=== PATIENT | male | born 1975 | race Caucasian/White ===

== ENCOUNTER 2023-03-29 16:28 | Inpatient (IN) | payer MEDICAID, OTHER ==
[~2023-03-29] VITALS: Ht 190.5 cm; Wt 98.3 kg
[2023-03-29 17:27] LABS: Basophils # (auto) 0.1 10 ^3/uL (0-0.2); Basophils % (auto) 0.6 % (0.0-2.0); Eosinophils # (auto) 0.1 10 ^3/uL (0-0.8); Eosinophils % (auto) 0.6 % (0.0-7.0); Hematocrit 44.7 % (41.0-53.0); Hemoglobin 15.4 g/dL (13.5-17.5); Lymphocytes # (auto) 3.1 10 ^3/uL (0.4-5.4); Lymphocytes % (auto) 24.5 % (10.0-50.0); Mean Corpuscular Hgb Conc. 34.4 g/dL (32.0-36.0); Mean Corpuscular Volume 90.2 fL (80.0-100.0); Monocytes # (auto) 0.6 10 ^3/uL (0-1.3); Monocytes % (auto) 4.4 % (0.0-12.0); Neutrophils # (auto) 8.8 10 ^3/uL (1.6-8.6); Neutrophils % (auto) 69.9 % (37.0-80.0); Nucleated Red Blood Cells % 0.1 %; Red Blood Cells 4.96 10^6/uL (4.5-5.90); Red Cell Distribution Width 13.5 % (11.8-14.3); White Blood Cell 12.7 10^3/uL (4.4-10.8)
[2023-03-29 17:44] LABS: Alanine Aminotransferase 33 U/L (7-40); Albumin 4.9 g/dL (3.2-4.8); Alkaline Phosphatase 123 U/L (46-116); Anion Gap 8.3 (5-15); Aspartate Aminotransferase 12 U/L (13-40); BUN/Creatinine Ratio 11.8 (10.0-20.0); Bilirubin, Total 0.3 mg/dL (0.2-1.0); Blood Urea Nitrogen 15 mg/dL (9-23); Calcium 10.1 mg/dL (8.7-10.4); Carbon Dioxide 22.7 mmol/L (20-30); Chloride 106 mmol/L (98-107); Glucose 175 mg/dL (74-106); Potassium 4.2 mmol/L (3.5-5.1); Sodium 137 mmol/L (136-145); Total Protein 7.5 g/dL (5.7-8.2)
[2023-03-29 17:45] LABS: INR 0.98 (0.9-1.15); Partial Thromboplastin Time 27.7 SEC (24.5-34.5); Prothrombin Time 10.3 sec (9.3-11.8)
[2023-03-29 18:12] LABS: Urine Bacteria FEW /hpf (None Seen); Urine Blood TRACE /uL (Negative); Urine Clarity HAZY (Clear); Urine Color Yellow (Yellow); Urine Mucus FEW (None Seen); Urine Protein, UAD TRACE (Negative); Urine Specific Gravity 1.031 (1.001-1.035); Urine Urobilinogen Normal (Negative); Urine WBC 2 /hpf (0 - 3); Urine pH 5.5 (5.0-8.0)
[2023-03-29] MEDS ORDERED: ASPirin 325 MG TAB PO ONE (18:15)
[2023-03-29] MEDS ORDERED: cefTRIAXone 1GM/50ML D5W 50 ML IV ONE (18:30)
[2023-03-29] MEDS ORDERED: NITROGLYCERIN 0.4 MG SL TAB SL ONE (19:00)
[2023-03-29 19:50] VITALS: PULSE 77; RESP 14; O2SAT 99
[2023-03-29] MEDS ORDERED: LABETALOL HCL 5 MG/ML 4ML SYRINGE IV PRN (20:00)
[2023-03-29] MEDS ORDERED: ACETAMINOPHEN 325 MG TAB PO PRN (20:00)
[2023-03-29] MEDS ORDERED: MORPHINE SULFATE INJ 2 MG/ml SYRG IV PRN (20:00)
[2023-03-29] MEDS ORDERED: NITROGLYCERIN 0.4 MG SL TAB SL PRN (20:00)
[2023-03-29] MEDS ORDERED: ASPirin-EC 81 mg tab PO ONE (20:00)
[2023-03-29] MEDS ORDERED: LABETALOL HCL 5 MG/ML 4ML SYRINGE IV ONE (20:45)
[2023-03-29] MEDS ORDERED: HEPARIN DRIP/D5W 100UNITS/ML 250 ML IV SCH ×2 (20:45→21:00)
[2023-03-29] MEDS ORDERED: HEPARIN SODIUM (PORCINE) 5000 UNITS/ML 1ML VIAL IV ONE ×2 (20:45→21:00)
[2023-03-29] MEDS: SODIUM CHLOR 0.9% PF (SALINE LOCK) 10ML VIAL/SYR IV SCH (21:30)
[2023-03-29 21:44] LABS: Magnesium 1.9 mg/dL (1.6-2.6)
[2023-03-29 22:33] LABS: INR 1.06 (0.9-1.15); Prothrombin Time 11.1 sec (9.3-11.8)
[2023-03-29 22:43] LABS: Partial Thromboplastin Time 96.5 SEC (24.5-34.5)
[2023-03-30] VITALS (21 sets, daily range): BP systolic 95–159; BP diastolic 55–98; PULSE 56–83; RESP 11–20; TEMP 97.8–98.7; O2SAT 96–99
[2023-03-30 03:27] LABS: INR 0.98 (0.9-1.15); Partial Thromboplastin Time 37.8 SEC (24.5-34.5); Prothrombin Time 10.3 sec (9.3-11.8)
[2023-03-30] MEDS: SODIUM CHLOR 0.9% PF (SALINE LOCK) 10ML VIAL/SYR IV SCH ×3 (06:02→21:30)
[2023-03-30 06:35] LABS: Basophils # (auto) 0.1 10 ^3/uL (0-0.2); Basophils % (auto) 0.5 % (0.0-2.0); Eosinophils # (auto) 0.2 10 ^3/uL (0-0.8); Eosinophils % (auto) 1.7 % (0.0-7.0); Hematocrit 42.3 % (41.0-53.0); Hemoglobin 14.8 g/dL (13.5-17.5); Lymphocytes # (auto) 3.2 10 ^3/uL (0.4-5.4); Lymphocytes % (auto) 29.1 % (10.0-50.0); Mean Corpuscular Hemoglobin 31.4 pg (28.0-32.0); Mean Corpuscular Hgb Conc. 35.1 g/dL (32.0-36.0); Mean Corpuscular Volume 89.5 fL (80.0-100.0); Monocytes # (auto) 0.7 10 ^3/uL (0-1.3); Neutrophils # (auto) 6.9 10 ^3/uL (1.6-8.6); Neutrophils % (auto) 62.7 % (37.0-80.0); Red Blood Cells 4.72 10^6/uL (4.5-5.90); Red Cell Distribution Width 13.3 % (11.8-14.3)
[2023-03-30 06:46] LABS: Chloride 109 mmol/L (98-107); Potassium 4.1 mmol/L (3.5-5.1); Sodium 140 mmol/L (136-145)
[2023-03-30 06:47] LABS: Anion Gap 6.5 (5-15); Calcium 9.1 mg/dL (8.7-10.4); Carbon Dioxide 24.5 mmol/L (20-30)
[2023-03-30 06:52] LABS: Blood Urea Nitrogen 12 mg/dL (9-23); Glucose 116 mg/dL (74-106)
[2023-03-30] MEDS: PANTOPRAZOLE 40 MG/10 ML VIAL INJ IV SCH (08:11)
[2023-03-30] MEDS: cefTRIAXone 1GM/50ML D5W 50 ML IV SCH (08:14)
[2023-03-30] MEDS: ASPirin-EC 81 mg tab PO SCH (08:14)
[2023-03-30] MEDS ORDERED: ATORVASTATIN 20 MG TAB PO ONE (09:15)
[2023-03-30] MEDS: SOD CHL 0.45% 1,000 ML IV SCH ×2 (09:19→18:30)
[2023-03-30] MEDS ORDERED: METOPROLOL TARTRATE 25 MG TAB PO SCH (10:00)
[2023-03-30] MEDS ORDERED: ENOXAPARIN SOD 40 MG/0.4 ML SYRINGE SC SCH (10:00)
[2023-03-30 10:48] LABS: INR 0.96 (0.9-1.15); Partial Thromboplastin Time 42.6 SEC (24.5-34.5); Prothrombin Time 10.1 sec (9.3-11.8)
[2023-03-30] MEDS ORDERED: HEPARIN DRIP/D5W 100UNITS/ML 250 ML IV SCH (11:30)
[2023-03-30] MEDS ORDERED: LIDOCAINE 2%HCL (LOCAL ANESTH.) INJ 20ML MDV ONE (16:44)
[2023-03-30] MEDS ORDERED: IODIXANOL 320MG/ML 100ML BTL IV ONE (16:44)
[2023-03-30] MEDS ORDERED: HEPARIN SODIUM (PORCINE) 5000 UNITS/ML 1ML VIAL ONE ×2 (16:51→17:21)
[2023-03-30] MEDS ORDERED: SODIUM CHL 0.9% 0 ML ONE (16:51)
[2023-03-30] MEDS ORDERED: VERAPAMIL 2.5MG/ML INJ 2ML VIAL IV ONE (16:51)
[2023-03-30] MEDS ORDERED: fentaNYL CITRATE 100 MCG/2 ML VL ONE (16:51)
[2023-03-30] MEDS ORDERED: MIDAZOLAM HCL 2MG/2ML 2ml VIAL (1mg/ml) ONE (16:51)
[2023-03-30] MEDS ORDERED: ANGIOMAX 250 MG VIAL IV ONE (16:51)
[2023-03-30] MEDS ORDERED: TICAGRELOR 90 MG TAB ONE (17:32)
[2023-03-30] MEDS: TICAGRELOR 90 MG TAB PO SCH (21:30)
[2023-03-30] MEDS: CARVEDILOL 3.125 MG TAB PO SCH (21:32)
[2023-03-30] MEDS ORDERED: ATORVASTATIN 20 MG TAB PO SCH ×2 (22:00)
[2023-03-31] VITALS (19 sets, daily range): BP systolic 102–148; BP diastolic 57–96; PULSE 63–96; RESP 12–23; TEMP 97.8–98.3; O2SAT 91–99
[2023-03-31] MEDS: SOD CHL 0.45% 1,000 ML IV SCH ×2 (04:58→15:15)
[2023-03-31] MEDS: SODIUM CHLOR 0.9% PF (SALINE LOCK) 10ML VIAL/SYR IV SCH ×2 (05:30→14:00)
[2023-03-31 05:55] LABS: Basophils # (auto) 0 10 ^3/uL (0-0.2); Basophils % (auto) 0.4 % (0.0-2.0); Eosinophils # (auto) 0.1 10 ^3/uL (0-0.8); Eosinophils % (auto) 1.4 % (0.0-7.0); Hematocrit 42.1 % (41.0-53.0); Hemoglobin 14.4 g/dL (13.5-17.5); Lymphocytes # (auto) 2.4 10 ^3/uL (0.4-5.4); Lymphocytes % (auto) 24.1 % (10.0-50.0); Mean Corpuscular Hgb Conc. 34.1 g/dL (32.0-36.0); Mean Corpuscular Volume 90.7 fL (80.0-100.0); Monocytes # (auto) 0.6 10 ^3/uL (0-1.3); Neutrophils # (auto) 6.7 10 ^3/uL (1.6-8.6); Neutrophils % (auto) 68.1 % (37.0-80.0); Red Blood Cells 4.65 10^6/uL (4.5-5.90); Red Cell Distribution Width 13.3 % (11.8-14.3); White Blood Cell 9.9 10^3/uL (4.4-10.8)
[2023-03-31 06:09] LABS: Chloride 106 mmol/L (98-107); Potassium 3.6 mmol/L (3.5-5.1); Sodium 137 mmol/L (136-145)
[2023-03-31 06:10] LABS: Anion Gap 10 (5-15); Calcium 9.1 mg/dL (8.7-10.4); Carbon Dioxide 21 mmol/L (20-30)
[2023-03-31 06:15] LABS: BUN/Creatinine Ratio 11.3 (10.0-20.0); Blood Urea Nitrogen 12 mg/dL (9-23); Glucose 200 mg/dL (74-106)
[2023-03-31] MEDS: cefTRIAXone 1GM/50ML D5W 50 ML IV SCH (09:17)
[2023-03-31] MEDS: PANTOPRAZOLE 40 MG/10 ML VIAL INJ IV SCH (09:17)
[2023-03-31] MEDS: TICAGRELOR 90 MG TAB PO SCH (09:18)
[2023-03-31] MEDS: ASPirin-EC 81 mg tab PO SCH (09:18)
[2023-03-31] MEDS: CARVEDILOL 3.125 MG TAB PO SCH (09:19)
[2023-03-31] MEDS ORDERED: LISINOPRIL 5 MG TAB PO SCH (10:00)
[2023-03-31] MEDS ORDERED: ATOR20TA50 PO (12:01)
[2023-03-31] MEDS ORDERED: LISI-275 PO (12:01)
[2023-03-31] MEDS ORDERED: ASPI-543 PO (12:01)
[2023-03-31] MEDS ORDERED: CAR3125T PO (12:01)
[2023-03-31] MEDS ORDERED: TICA90TA PO (12:02)
== END 2023-03-31 18:19 | disposition home or self-care (01) | DRG 174 ==
LOC: ER 16:28 → TELE 20:19 → DOU IN ICU 03-30 04:02
PROVIDERS: ADMIT Nurse Practitioner Family; ATTEND Internal Medicine
PROC: 4A023N7 Measurement of Cardiac Sampling and Pressure, Left Heart, Percutaneous Approach (ICD-10-PCS; principal; 2023-03-30)
PROC: B211YZZ Fluoroscopy of Multiple Coronary Arteries using Other Contrast (ICD-10-PCS; 2023-03-30)
PROC: B215YZZ Fluoroscopy of Left Heart using Other Contrast (ICD-10-PCS; 2023-03-30)
PROC: 027034Z Dilation of Coronary Artery, One Artery with Drug-eluting Intraluminal Device, Percutaneous Approach (ICD-10-PCS; 2023-03-30)
DX: I21.4 Non-ST elevation (NSTEMI) myocardial infarction (principal); E78.1 Pure hyperglyceridemia; I25.10 Atherosclerotic heart disease of native coronary artery without angina pectoris; E78.5 Hyperlipidemia, unspecified; R31.29 Other microscopic hematuria; I10 Essential (primary) hypertension; Z98.61 Coronary angioplasty status; Z82.49 Family history of ischemic heart disease and other diseases of the circulatory system; Z88.5 Allergy status to narcotic agent
CPT/HCPCS: 36415; 71045; 80048; 80053; 80061; 81001; 83036; 83735; 84484; 85025; 85379; 85610; 85730; 87040; 87081; 92941; 93005; 93306; 93458; 96365; 99152; 99153; 99291; C1887; C9113; G0378; J0696; J2250; J3490; Q9967

== ENCOUNTER → 2024-01-16 | Outpatient (CLI) | payer MEDICAID ==
[~2024-01-16] MED LIST: ASPI-543 PO; ATOR20TA50 PO; CARV-214 PO; LISI-275 PO; TICA90TA PO
== END | disposition home or self-care (01) ==
LOC: XYW 13:32
PROVIDERS: ATTEND Internal Medicine
DX: I07.1 Rheumatic tricuspid insufficiency (principal); I25.10 Atherosclerotic heart disease of native coronary artery without angina pectoris
CPT/HCPCS: 93306

== ENCOUNTER 2024-11-14 08:08 | Emergency (ER) | payer MEDICAID, OTHER ==
[~2024-11-14] VITALS: Ht 190.5 cm; Wt 85.7 kg
[2024-11-14 08:52] VITALS: BP 134/75; PULSE 67; RESP 18; TEMP 98; O2SAT 98
[2024-11-14] MEDS ORDERED: ACET-1881 PO (08:55)
[2024-11-14] MEDS ORDERED: HYDR-4902 PO (08:55)
[2024-11-14] MEDS ORDERED: METH-1181 PO (08:55)
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
== END 2024-11-14 08:58 | disposition home or self-care (01) ==
LOC: ER 08:08
DX: M79.18 Myalgia, other site (principal); Z79.82 Long term (current) use of aspirin; Z79.899 Other long term (current) drug therapy; Z88.5 Allergy status to narcotic agent; V89.2XXA Person injured in unspecified motor-vehicle accident, traffic, initial encounter; Y93.89 Activity, other specified; Y92.89 Other specified places as the place of occurrence of the external cause; Y99.8 Other external cause status

== ENCOUNTER 2025-02-14 14:04 | Emergency (ER) | payer MEDICAID ==
[~2025-02-14] VITALS: Ht 190.5 cm; Wt 87.0 kg
[~2025-02-14 14:04] MED LIST changes: +ACET-1881 PO; +HYDR-4902 PO; +METH-1181 PO
--- NOTE | 2025-02-14 14:31 | ED.PDOC ---
HPI Comments 49y M who presents to the ED for chief complaint of chest pain. 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 Pt states he went to his car to sit down and states his symptoms temporarily were alleviated. Pt states he was driving and later, he had cough and states he started to have L sided chest pain. Pt states the pain is stabbing, radiating to the L arm, rating the pain 6/ 10, with no associated exacerbating or relieving factors. Pt states he has past cardiac history of mild ME and states daily baby aspirin and states he took it earlier this AM. Pt has noted BP of 182/93 but vitals are otherwise normal. Pt otherwise denies any other symptoms at this time. Chief Complaint: Chest Pain Time Seen by MD: 14:29 Primary Care Provider: FREDDIE Reviewed Notes: Medications, Allergies Allergies: Coded Allergies: Codeine (Verified Allergy, Unknown, 03/29/23) Home Meds Active Scripts Hydrocodone-Acetaminophen (Hydrocodone Bitartrate/AC 5-325 mg) 1 Tab Tab, 1 TAB PO Q8HP PRN for 1 Day, #3 TAB 0 Refills Prov:ROZINA ANDERSON [employer] WORKER 11/14/24 Acetaminophen (Acetaminophen) 325 Mg Tab, 325 MG PO Q6HP PRN for 10 Days, #40 TAB 0 Refills Prov:ROZINA ANDERSON [employer] WORKER 11/14/24 Methocarbamol (Methocarbamol) 500 Mg Tab, 500 MG PO Q6HP PRN for 10 Days, #40 TAB 0 Refills Prov:ROZINA ANDERSON [employer] WORKER 11/14/24 Ticagrelor Base (BRILINTA) 90 Mg Tab, 90 MG PO BID, #60 TAB Prov:YASSINE PEREZ MD 03/31/23 Lisinopril (Lisinopril) 5 Mg Tab, 2.5 MG PO DAILY, #30 TAB Prov:YASSINE PEREZ MD 03/31/23 Carvedilol (COREG) 3.125 Mg Tab, 3.125 MG PO Q12HR, #60 TAB Prov:YASSINE PEREZ MD 03/31/23 Atorvastatin Calcium (ATORVASTATIN CALCIUM) 20 Mg Tab, 40 MG PO HS, #30 TAB Prov:YASSINE PEREZ MD 03/31/23 Aspirin (Aspir-Low) 81 Mg Tab, 81 MG PO DAILY, #30 TAB Prov:YASSINE PEREZ MD 03/31/23 Information Source: Patient Mode of Arrival: Ambulatory Severity: Moderate Timing: Hours Duration: Since onset Prehospital treatment: None Location: Chest (L) Radiation: Arm (L) Quality: Stabbing Onset: At Rest Cardiac Risk Factors: Smoker PE Risk Factors: None History of: Similar pain in past, ME, Aspirin Modifying Factors: Nothing Associated Signs and Symptoms: None Past Medical History PAST MEDICAL HISTORY: High Lipids, HTN, ME Surgical History: PTCA Family History Family History: Reviewed,noncontributory to illness Social History Smoker: Cigarettes Alcohol: Denies ETOH Use Drugs: Denies Drug Use Constitutional: denies: chills, diaphoresis, fatigue, fever, malaise, sweats, weakness, others EENTM: denies: blurred vision, double vision, ear bleeding, ear discharge, ear drainage, ear pain, ear ringing, eye pain, eye redness, hearing loss, mouth pain, mouth swelling, nasal discharge, nose bleeding, nose congestion, nose pain, photophobia, tearing, throat pain, throat swelling, voice changes, others Respiratory: denies: cough, hemoptysis, orthopnea, SOB at rest, shortness of breath, SOB with excertion, stridor, wheezing, others Cardiovascular: reports: chest pain; denies: dizzy spells, diaphoresis, Dyspnea on exertion, edema, irregular heart beat, left arm pain, lightheadedness, palpitations, PND, syncope, others Gastrointestinal: denies: abdomen distended, abdominal pain, blood streaked bowels, constipated, diarrhea, dysphagia, difficulty swallowing, hematemesis, melena, nausea, poor appetite, poor fluid intake, rectal bleeding, rectal pain, vomiting, others Genitourinary: denies: burning, dysuria, flank pain, frequency, hematuria, incontinence, penile discharge, penile sore, pain, testicle pain, testicle swelling, urgency, others Neurological: denies: dizziness, fainting, headache, left sided numbness, left sided weakness, numbness, paresthesia, pre-existing deficit, right sided numbness, right sided weakness, seizure, speech problems, tingling, tremors, weakness, others Musculoskeletal: denies: back pain, gout, joint pain, joint swelling, muscle pain, muscle stiffness, neck pain, others Integumetry: denies: bruises, change in color, change in hair/nails, dryness, laceration, lesions, lumps, rash, wounds, others Allergic/Immunocompromised: denies: Difficulty Healing, Frequent Infections, Hives, Itching, others Hematologic/Lymphatic: denies: anemia, blood clots, easy bleeding, easy bruising, swollen glands, others Endocrine: denies: excessive hunger, excessive sweating, excessive thirst, excessive urination, flushing, intolerance to cold, intolerance to heat, unexplained weight gain, unexplained weight loss, others Psychiatric: denies: anxiety, bipolar disorder, depression, hopeless, panic disorder, schizophrenia, sleepless, suicidal, others All Other Systems: Reviewed and Negative EKG EKG : Pulse Rate (adult): 92 Thompson: Normal Cardiac Rhythm: NSR Block: None Hypertrophy: SAE ST: Normal Was a procedure done? Was a procedure done?: No CP Differential Dx Differential Diagnosis: A-fib, A-Flutter, Angina, Anxiety / Panic Attack, Heart Failure, PVC's Differential Diagnosis: HTN Essential, HTN Accelerated, HTN Encephalopathy, Medical NonCompliance Differential Diagnosis: Angina, Chest Wall Pain, Costochondritis X-Ray, Labs, Meds, VS Vital Signs Date Time Temp Pulse Resp B/P (MAP) Pulse Ox O2 Delivery O2 Flow Rate FiO2 02/14/25 15:11 86 02/14/25 14:31 92 02/14/25 14:10 92 02/14/25 14:05 98.2 108 18 182/93 98 98.2 Lab Test 02/14/25 14:16 Range/Units White Blood Count Pending Red Blood Count Pending Hemoglobin Pending Hematocrit Pending Mean Corpuscular Volume Pending Mean Corpuscular Hemoglobin Pending Mean Corpuscular Hemoglobin Concent Pending Red Cell Distribution Width Pending Platelet Count Pending Mean Platelet Volume Pending Neutrophils (%) (Auto) Pending Lymphocytes (%) (Auto) Pending Monocytes (%) (Auto) Pending Basophils (%) (Auto) Pending Neutrophils # (Auto) Pending Lymphocytes # (Auto) Pending Monocytes # (Auto) Pending Sodium Level Pending Potassium Level Pending Chloride Level Pending Carbon Dioxide Level Pending Anion Gap Pending Blood Urea Nitrogen Pending Creatinine Pending Glomerular Filtration Rate Calc Pending BUN/Creatinine Ratio Pending Serum Glucose Pending Calcium Level Pending Troponin I High Sensitivity 5 </=54 ng/L CHEST RADIOGRAPH IMPRESSION: No evidence of acute disease. Patient Education/Counseling: Diagnosis, Treatment Family Education/Counseling: No Family Present SEPSIS Sepsis Screen Date sepsis recognized/suspect: Feb 14, 2025 Time Sepsis recognized/suspect: 1407 Recent Procedure: No On Antibiotic Therapy: No Respiratory Rate >20: No Heart Rate >90: Yes Temp<36 C (96.8 F) or >38.3 C: No SBP <90 or MAP <65 mmHG: No New Acute Mental Status Change: No Is the patient on CPAP, BIPAP,: No Physician Orders Electrocardigram (02/14/25 14:12) Troponin-I Hs (02/14/25 15:12) Troponin-I Hs (02/14/25 17:12) Electrocardigram (02/14/25 15:12) Electrocardigram (02/14/25 17:12) Complete Blood Count (02/14/25 14:16) Basic Metabolic Panel (02/14/25 14:16) Chest Two Views Routine (02/14/25 14:16) Vital Signs Date Time Temp Pulse Resp B/P (MAP) Pulse Ox O2 Delivery O2 Flow Rate FiO2 02/14/25 15:11 86 02/14/25 14:31 92 02/14/25 14:10 92 02/14/25 14:05 98.2 108 18 182/93 98 98.2 Laboratory Tests Test 02/14/25 14:16 White Blood Count Pending Critical Care Note Critical Care Time?: No Stability Stability form required: No Heart Score Heart Score: Heart Score Response (Comments) Value History Slightly Suspicious 0 EKG Normal 0 Age 45-64 1 Risk Factors >3 or Hx ASHD 2 Total 3 I personally scribed for ANGELIQUE LEONG MD ([email or web address]) on 02/14/25 at 14:31. Electronically submitted by Yolette Spicer ([email or web address]). I personally scribed for ANGELIQUE LEONG MD ([email or web address]) on 02/14/25 at 15:15. Electronically submitted by Yolette Spicer ([email or web address]). ANGELIQUE LEONG MD Feb 14, 2025 14:31
--- NOTE | 2025-02-14 14:40 | DVH ---
CHEST RADIOGRAPH Indication: CP Technique: Frontal and lateral view of the chest was obtained Comparison: XY CHEST PORTABLE on DOS: 03/29/23 FINDINGS: Lines and Tubes: None Lungs: Clear Pleura: No effusion. No pneumothorax. Cardiomediastinal contours: Unremarkable Bones: Unremarkable IMPRESSION: No evidence of acute disease.
[2025-02-14 15:25] LABS: Hematocrit 45.7 % (41.0-53.0); Hemoglobin 15.9 g/dL (13.5-17.5); Mean Corpuscular Hemoglobin 31.4 pg (28.0-32.0); Mean Corpuscular Volume 90.3 fL (80.0-100.0); Nucleated Red Blood Cells % 0.0 %
[2025-02-14 15:26] VITALS: BP 139/95; PULSE 86; RESP 19; TEMP 98.2; O2SAT 97
[2025-02-14 15:34] LABS: Chloride 105 mmol/L (98-107); Potassium 4.3 mmol/L (3.5-5.1); Sodium 140 mmol/L (136-145)
[2025-02-14 15:35] LABS: Anion Gap 9 (5-15); Carbon Dioxide 26 mmol/L (20-31)
[2025-02-14 15:36] LABS: Calcium 10.6 mg/dL (8.7-10.4)
[2025-02-14 15:40] LABS: BUN/Creatinine Ratio 18.1 (10.0-20.0); Blood Urea Nitrogen 21 mg/dL (9-23); Glucose 131 mg/dL (74-106)
[2025-02-14] MEDS ORDERED: ACETAMINOPHEN 325 MG TAB PO PRN (16:00)
[2025-02-14] MEDS ORDERED: ONDANSETRON HCL 4 MG/2 ML VIAL IV PRN (16:00)
[2025-02-14] MEDS ORDERED: NITROGLYCERIN 0.4 MG SL TAB SL PRN (16:00)
[2025-02-14] MEDS ORDERED: MORPHINE SULFATE INJ 2 MG/ml SYRG IV PRN (16:00)
[2025-02-14] MEDS ORDERED: CARVEDILOL 3.125 MG TAB PO SCH (22:00)
[2025-02-14] MEDS ORDERED: ATORVASTATIN 20 MG TAB PO SCH (22:00)
[2025-02-15] MEDS ORDERED: LISINOPRIL 5 MG TAB PO SCH (10:00)
== END 2025-02-14 15:51 | disposition left against medical advice (07) ==
LOC: ER 14:04
DX: R07.89 Other chest pain (principal); R05.9 Cough, unspecified; F17.210 Nicotine dependence, cigarettes, uncomplicated; I10 Essential (primary) hypertension; I25.2 Old myocardial infarction; E78.5 Hyperlipidemia, unspecified; Z88.5 Allergy status to narcotic agent; Z79.82 Long term (current) use of aspirin; Z79.899 Other long term (current) drug therapy
CPT/HCPCS: 36415; 71046; 80048; 84484; 85025

== ENCOUNTER 2025-02-21 07:32 | Day surgery (SDC) | payer MEDICAID ==
[2025-02-20 10:25] LABS: Urine Protein, UAD Negative (Negative)
[2025-02-20 10:26] LABS: Hematocrit 43.9 % (41.0-53.0); Hemoglobin 15.2 g/dL (13.5-17.5); Mean Corpuscular Hemoglobin 31.5 pg (28.0-32.0); Mean Corpuscular Volume 90.8 fL (80.0-100.0); Nucleated Red Blood Cells % 0.0 %
[2025-02-20 10:46] LABS: INR 0.97 (0.9-1.15); Partial Thromboplastin Time 27.2 SEC (24.5-34.5); Prothrombin Time 10.3 sec (9.3-11.8)
[2025-02-20 10:58] LABS: Albumin 4.7 g/dL (3.2-4.8); Anion Gap 5 (5-15); BUN/Creatinine Ratio 23.0 (10.0-20.0); Bilirubin, Total 0.5 mg/dL (0.2-1.0); Blood Urea Nitrogen 23 mg/dL (9-23); Calcium 9.5 mg/dL (8.7-10.4); Carbon Dioxide 27 mmol/L (20-31); Glucose 91 mg/dL (74-106); Potassium 4.6 mmol/L (3.5-5.1); Sodium 141 mmol/L (136-145); Total Protein 6.8 g/dL (5.7-8.2)
[2025-02-20 11:12] LABS: Alanine Aminotransferase 47 U/L (7-40); Alkaline Phosphatase 123 U/L (46-116); Chloride 109 mmol/L (98-107)
[~2025-02-21] VITALS: Ht 190.5 cm; Wt 86.2 kg
[~2025-02-21 07:32] MED LIST changes: -HYDR-4902 PO; -METH-1181 PO; -TICA90TA PO
[2025-02-21] MEDS ORDERED: LIDOCAINE 1% INJ PF 5ML AMP ONE (08:07)
[2025-02-21] MEDS ORDERED: PROPOFOL 10 MG/ML 20 ML IV ONE ×2 (08:07→08:15)
[2025-02-21 08:47] VITALS: PULSE 61; RESP 12; TEMP 98; O2SAT 100
--- NOTE | 2025-02-21 08:48 | DVHHP2 ---
GI H&P Pre-Op Assessment Date: 02/21/25 Chief complaint: Blood in stool HPI: per clinic note Past medical history: per clinic note Past surgical history: per clinic note Family history: per clinic note Physical exam: General: NAD, AAOX3 HEENT: PERRL, no scleral icterus, normal hearing, gums without lesions or ble eding, oropharynx clear without erythema or exudate. Neck: Supple without enlargement of the thyroid, or lymphadenopathy. Chest: Normal size and shape, no tenderness, lung jensen clear to auscultation and percussion, nonlabored breathing. Heart: RRR, no murmur Abdomen: non-distended, no tenderness to palpation, +BS, no hepatosplenomegaly Extremities: no edema Neurological: CN II-XII intact, sensation intact in all extremities, 5+ strength in all extremities Skin: No rashes, No jaundice Assessment: -Blood in stool Plan: - Colonoscopy - Risks (bleeding, infection, perforation, reaction to sedation medications and cardiopulmonary arrest) and benefit of the procedure were explained to patient. Patient agrees to undergo the procedure. GEORGI BELLAMY MD Feb 21, 2025 08:48
--- NOTE | 2025-02-21 08:51 | DVHOP2 ---
Operative Report DATE OF OPERATION: 02/21/25 PROCEDURE: Colonoscopy. PREOPERATIVE INDICATION: The patient is a 49 -year-old male undergoing colonoscopy for blood in stool. POSTOPERATIVE DIAGNOSES: 1. 2 mm transverse colon was removed with cold biopsy forceps. 2. Two descending colon polyps (2 mm, 3 mm) were removed with cold biopsy forceps. 3. 2 mm rectosigmoid polyp was removed by cold biopsy forceps. 4. A 1 cm sigmoid colon polyp was removed with hot snare and retrieved. The polypectomy site was clipped. 5. Mild diverticulosis in the left colon. 6. Small Internal hemorrhoids. PROCEDURE PERFORMED BY: Carlos Teague M.D. SCOPE: Olympus videocolonoscope. ASA CLASS: 3 PREOPERATIVE MEDICATIONS: MAC with Joahnn LUO PROCEDURE IN DETAIL: After obtaining an informed consent, the patient was placed on left lateral decubitus position. He was then sedated with the above medications. A rectal examination was performed that was normal. The colonoscope was then passed through the anus into the rectosigmoid and through the descending, transverse, and ascending colon up to the cecum with visualization of the appendiceal orifice, base of the cecum and the ileocecal valve. A 2 mm transverse colon was removed with cold biopsy forceps. Two descending colon polyps (2 mm, 3 mm) were removed with cold biopsy forceps. A 2 mm rectosigmoid polyp was removed by cold biopsy forceps. A 1 cm sigmoid colon polyp was removed with hot snare and retrieved. The polypectomy site was clipped. There was mild diverticulosis in the left colon. There were small Internal hemorrhoids. The colonoscope was then withdrawn. The patient tolerated the procedure well without difficulty. WITHDRAWAL TIME: 25 minutes QUALITY OF THE PREP: [place] Bowel Prep score: 5 COMPLICATIONS : None SPECIMENS: Colon polyps DISPOSITION: D/C to home PLAN: 1. Repeat colonoscopy base on biopsy result CARLOS TEAGUE MD Feb 21, 2025 08:51
--- NOTE | 2025-02-21 08:52 | DVHDS2 ---
Physician Discharge Progress N Final Diagnosis: Colon polyp, diverticulosis, internal hemorrhoids Operations or Procedures: Operations or Procedures Colonoscopy with cold forceps polypectomy and hot snare polypectomy. Condition on Discharge: Good Disposition: Home Discharge Instructions: Diet: Regular Activity: No Restrictions, As Tolerated Medications: Resume previous home medications Follow Up Care: Discharge Statement: "Patient was advised to return to the ER or call 911 if any headaches, dizziness, shortness of breath, chest pain, abdominal pain, bleeding, fevers, or worsening of medical condition. Patient was counseled about treatment plan, medications, possible side effects, patientverbalized understanding. All questions were answered to the best of my ability. This discharge took greater then 30 minutes in planning, reviewing documentation, counseling the patient, and discussing with other team members." GEORGI BELLAMY MD Feb 21, 2025 08:51
[2025-02-21 09:10] VITALS: BP 131/84; PULSE 57; RESP 12; O2SAT 99
== END 2025-02-21 09:25 | disposition home or self-care (01) ==
LOC: GI 07:32
PROVIDERS: ATTEND Internal Medicine Gastroenterology
DX: K92.1 Melena (principal); K57.30 Diverticulosis of large intestine without perforation or abscess without bleeding; K63.5 Polyp of colon; K64.8 Other hemorrhoids; D12.4 Benign neoplasm of descending colon; D12.5 Benign neoplasm of sigmoid colon; K62.1 Rectal polyp; I10 Essential (primary) hypertension; I25.10 Atherosclerotic heart disease of native coronary artery without angina pectoris; I25.2 Old myocardial infarction; Z95.5 Presence of coronary angioplasty implant and graft; K21.9 Gastro-esophageal reflux disease without esophagitis; Z79.899 Other long term (current) drug therapy; Z98.890 Other specified postprocedural states
CPT/HCPCS: 36415; 45380; 45385; 80053; 81001; 85025; 85610; 85730; 88305; J2704; J7030

== ENCOUNTER 2025-04-04 10:24 | Day surgery (SDC) | payer MEDICAID ==
[2025-04-02 11:58] LABS: Urine Protein, UAD Negative (Negative)
[2025-04-02 12:03] LABS: Hematocrit 46.2 % (41.0-53.0); Hemoglobin 16.0 g/dL (13.5-17.5); Mean Corpuscular Hemoglobin 31.0 pg (28.0-32.0); Mean Corpuscular Volume 89.7 fL (80.0-100.0); Nucleated Red Blood Cells % 0.1 %
[2025-04-02 12:10] LABS: INR 1.0 (0.9-1.15); Partial Thromboplastin Time 28.3 SEC (24.5-34.5); Prothrombin Time 10.6 sec (9.3-11.8)
[2025-04-02 12:19] LABS: Albumin 4.6 g/dL (3.2-4.8); Anion Gap 6 (5-15); BUN/Creatinine Ratio 10.4 (10.0-20.0); Bilirubin, Total 0.5 mg/dL (0.2-1.0); Blood Urea Nitrogen 10 mg/dL (9-23); Calcium 9.8 mg/dL (8.7-10.4); Carbon Dioxide 29 mmol/L (20-31); Chloride 105 mmol/L (98-107); Glucose 74 mg/dL (74-106); Potassium 4.6 mmol/L (3.5-5.1); Sodium 140 mmol/L (136-145); Total Protein 7.3 g/dL (5.7-8.2)
[2025-04-02 12:23] LABS: Alanine Aminotransferase 41 U/L (7-40); Alkaline Phosphatase 143 U/L (46-116)
[~2025-04-04] VITALS: Ht 190.5 cm; Wt 85.7 kg
--- NOTE | 2025-04-04 11:33 | DVHHP2 ---
GI H&P Pre-Op Assessment Date: 04/04/25 Chief complaint: colon polyp with high-grade dysplasia HPI: per clinic note Past medical history: per clinic note Past surgical history: per clinic note Family history: per clinic note Physical exam: General: NAD, AAOX3 HEENT: PERRL, no scleral icterus, normal hearing, gums without lesions or bleeding, oropharynx clear without erythema or exudate. Neck: Supple without enlargement of the thyroid, or lymphadenopathy. Chest: Normal size and shape, no tenderness, lung jensen clear to auscultation and percussion, nonlabored breathing. Heart: RRR, no murmur Abdomen: non-distended, no tenderness to palpation, +BS, no hepatosplenomegaly Extremities: no edema Neurological: CN II-XII intact, sensation intact in all extremities, 5+ strength in all extremities Skin: No rashes, No jaundice Assessment: - colon polyp with high-grade dysplasia Plan: - Colonoscopy - Risks (bleeding, infection, perforation, reaction to sedation medications and cardiopulmonary arrest) and benefit of the procedure were explained to patient. Patient agrees to undergo the procedure. GEORGI BELLAMY MD Apr 04, 2025 11:33
[2025-04-04] MEDS ORDERED: METOCLOPRAMIDE HCL 5MG/ml INJ 2ml VIAL ONE (11:45)
[2025-04-04] MEDS ORDERED: ONDANSETRON HCL 4 MG/2 ML VIAL ONE (11:45)
[2025-04-04] MEDS ORDERED: PROPOFOL 10 MG/ML 20 ML IV ONE ×4 (11:46→12:30)
[2025-04-04 12:35] VITALS: PULSE 64; RESP 19; TEMP 97.7; O2SAT 98
--- NOTE | 2025-04-04 12:37 | DVHOP2 ---
Operative Report DATE OF OPERATION: 04/04/25 PROCEDURE: Colonoscopy. PREOPERATIVE INDICATION: The patient is a 49 -year-old male undergoing colonoscopy for history of colon polyp with high-grade dysplasia and positive margins. POSTOPERATIVE DIAGNOSES: 1. A 2 mm descending colon polyp was removed with cold biopsy forceps. 2. A 5 mm sigmoid polyp at 30 cm from anal verge was removed with hot snare and retrieved. 3. A 4 mm sigmoid colon polyp was removed with biopsy forceps. 4. A 3 mm sigmoid colon polyp was removed biopsy forceps. 5. There was a indurated site in the sigmoid colon at 25 cm from the anal verge that might be the previous polypectomy site where the polyp with high-grade dysplasia was removed. Biopsies of the area were obtained to evaluate for dysplasia. The area was tattooed. 6. Diverticulosis 7. Internal hemorrhoids PROCEDURE PERFORMED BY: Carlos Teague M.D. SCOPE: Olympus videocolonoscope. ASA CLASS: 3 PREOPERATIVE MEDICATIONS: MAC with Rod TACTICAL INTELLIGENCE OFFICER PROCEDURE IN DETAIL: After obtaining an informed consent, the patient was placed on left lateral decubitus position. He was then sedated with the above medications. A rectal examination was performed that was normal. The colonoscope was then passed through the anus into the rectosigmoid and through the descending, transverse, and ascending colon up to the cecum with visualization of the appendiceal orifice, base of the cecum and the ileocecal valve. A 2 mm descending colon polyp was removed with cold biopsy forceps. A 5 mm sigmoid polyp at 30 cm from anal verge was removed with hot snare and ret rieved. A 4 mm sigmoid colon polyp was removed with biopsy forceps. A 3 mm sigmoid colon polyp was removed biopsy forceps. There was a indurated site in the sigmoid colon at 25 cm from the anal verge that might be the previous polypectomy site where the polyp with high-grade dysplasia was removed. Biopsies of the area were obtained to evaluate for dysplasia. The area was tattooed. There was diverticulosis. There were internal hemorrhoids. The colonoscope was then withdrawn. The patient tolerated the procedure well without difficulty. WITHDRAWAL TIME: 30 minutes QUALITY OF THE PREP: [place] Bowel Prep score: 5 COMPLICATIONS : None SPECIMENS: Colon polyps, biopsy from area of previous polypectomy site where t he polyp with high-grade dysplasia was removed. DISPOSITION: D/C to home PLAN: 1. Repeat colonoscopy base on biopsy result CARLOS TEAGUE MD Apr 04, 2025 12:37
--- NOTE | 2025-04-04 12:38 | DVHDS2 ---
Physician Discharge Progress N Final Diagnosis: Colon polyps, diverticulosis, internal hemorrhoids Operations or Procedures: Operations or Procedures Colonoscopy with hot snare polypectomy and polypectomy with cold forceps Condition on Discharge: Good Disposition: Home Discharge Instructions: Diet: Regular Activity: No Restrictions, As Tolerated Medications: Resume previous home medications Follow Up Care: Discharge Statement: "Patient was advised to return to the ER or call 911 if any headaches, dizziness, shortness of breath, chest pain, abdominal pain, bleeding, fevers, or worsening of medical condition. Patient was counseled about treatment plan, medications, possible side effects, patientverbalized understanding. All questions were answered to the best of my ability. This discharge took greater then 30 minutes in planning, reviewing documentation, counseling the patient, and discussing with other team members." GEORGI BELLAMY MD Apr 04, 2025 12:38
[2025-04-04 13:05] VITALS: BP 123/78; PULSE 62; RESP 12; O2SAT 99
== END 2025-04-04 13:20 | disposition home or self-care (01) ==
LOC: GI 10:24
PROVIDERS: ATTEND Internal Medicine Gastroenterology
DX: K92.1 Melena (principal); D12.4 Benign neoplasm of descending colon; R12 Heartburn; D12.5 Benign neoplasm of sigmoid colon; K57.30 Diverticulosis of large intestine without perforation or abscess without bleeding; K64.8 Other hemorrhoids; Z86.0100 Personal history of colon polyps, unspecified; I10 Essential (primary) hypertension; I25.10 Atherosclerotic heart disease of native coronary artery without angina pectoris; Z79.899 Other long term (current) drug therapy; Z98.890 Other specified postprocedural states
CPT/HCPCS: 36415; 45380; 45381; 45385; 80053; 81001; 85025; 85610; 85730; 88305; J2405; J2704; J2765; J7030